=== PATIENT | female | born 1975 | race Caucasian/White ===

== ENCOUNTER 2017-01-20 22:52 | Emergency (ER) | payer BC ==
[~2017-01-20] VITALS: Ht 165.1 cm; Wt 90.0 kg
[~2017-01-20 22:52] MED LIST: Ecotrin PO; FIORICET 50-301 EACH PO; PERCOCET 5/31 TABLET PO; PINDOLOL5 MG PO; PROTONIX20 MG PO
[2017-01-21 00:22] LABS: BASOPHIL COUNT 0.1 K/uL (0-0.1); EOSINOPHIL (%) 7.1 % (0-5); EOSINOPHIL COUNT 0.5 K/uL (0-0.3); HEMATOCRIT 38.1 % (36.0-46.0); IMMATURE GRANULOCYTE (%) 0.3 % (0.0-0.7); INSTRUMENT ABS NEUTROPHIL CT 3.9 K/uL; MCH 30.5 PG (29.0-34.0); MCHC 33.6 G/DL (30.0-36.0); MCV 90.9 FL (83-99); MONOCYTE (%) 10.1 % (3-12); MONOCYTE COUNT 0.7 K/uL (0-0.8); NEUTROPHIL (%) 53.8 % (45-76); NEUTROPHIL COUNT 3.9 K/uL (1.8-6.4); PLATELET COUNT 215 K/uL (156-360); RBC DIS.WIDTH-CV 13.5 % (11.8-14.6); RBC DIS.WIDTH-SD 45.4 % (39-53); RED BLOOD COUNT 4.19 M/uL (3.80-5.20); WHITE BLOOD COUNT 7.2 K/uL (4.1-10.2)
[2017-01-21 00:33] LABS: CHLORIDE 108 mEq/L (99-109); POTASSIUM 4.4 mEq/L (3.7-5.4); SODIUM 139 mEq/L (136-147)
[2017-01-21 00:35] LABS: GLUCOSE 155 mg/dL (70-99); PTT 27.8 (25-32)
[2017-01-21 00:36] LABS: ANION GAP 8 MEQ/L (2-14)
[2017-01-21 00:39] LABS: GFR ESTIMATE (CALCULATED) 58 mL/min/; UREA NITROGEN (BUN) 16 mg/dL (9-23)
[2017-01-21 01:00] VITALS: BP 133/90
== END 2017-01-21 02:04 | disposition home or self-care (01) ==
LOC: EME 22:52
PROVIDERS: Emergency Medicine
DX: S80.12XA Contusion of left lower leg, initial encounter (principal); R25.2 Cramp and spasm; I10 Essential (primary) hypertension
CPT/HCPCS: 80048; 85025; 85610; 85730; 93005; 93971; 99281; 99283